=== PATIENT | male | born 1940 | race Caucasian/White ===

== ENCOUNTER 2020-06-30 08:07 | Outpatient (CLI) | payer MEDICARE, SELFPAY ==
--- NOTE | ~2020-06-30 | MR_ITS ---
EXAMINATION: MR brain/brain stem wo con DATE: 06/30/2020 10:01 INDICATION: Mild cognitive impairment. TECHNIQUE: Magnetic resonance imaging (MRI) of the brain and brainstem was performed without intraven ous contrast. Sequences included sagittal and axial T1-weighted FSE, axial diffusion-weighted FS EPI, axial T2*-weighted GRE, axial T2-weighted FLAIR Propeller, and axial T2-weighted Propeller. Apparent diffusion coefficient (ADC) maps were created. COMPARISON: Brain MRI 03/07/2013 FINDINGS: There are scattered areas of nonspecific increased T2-weighted signal intensity in the cere bral white matter and eddie, which is within normal limits for the patient's age. There is no intracra nial hemorrhage, acute infarction, or abnormal intracranial mass lesion. The ventricles are normal in size. There is mucosal thickening in the paranasal sinuses. There are likely changes of ocular lens replacement surgeries. The mastoid air cells are normal. IMPRESSION: 1. Normal aging brain. Reviewed, dictated and finalized at location A. IMPRESSION: 1. Normal aging brain.
== END 2020-06-30 08:08 | disposition home or self-care (01) ==
PROVIDERS: PCP Family Medicine
DX: G31.84 Mild cognitive impairment of uncertain or unknown etiology (principal)
CPT/HCPCS: 70551

== ENCOUNTER 2021-09-08 08:51 | Outpatient (CLI) | payer MEDICARE, SELFPAY ==
--- NOTE | 2021-09-08 | ECHO_ITS ---
Patient Info Name: Jasbir Haynes Age: 81 years : 1940 Gender: Male Ht: 69 in Wt: 160 lbs BSA: 1.88 m2 HR: 58 bpm BP: 169 / 99 mmHg Technical Quality: Good Exam Date: 09/08/2021 11:28 AM Exam Location: [facility] Patient Status: Outpatient Admit Date: 09/08/2021 Staff Ordering Physician: Karo Gomez MD Ornament[employer] Worker Apprentice: Matt Gaming RDCS, RT Attending Provider: Karo Gomez MD Referring Physician: Jason MATHEWS; Exam Type: CA echo doppler color flow Study Info Indications R06.00 - Dyspnea, unspecified Complete two-dimensional, color flow and Doppler transthoracic echocardiogram is performed. Strain analysis performed. Summary 1. Complete two-dimensional, color flow and Doppler transthoracic echocardiogram is performed. 2. Left ventricular chamber dimension is normal. 3. Left ventricular systolic function is normal, estimated at 60-65%. 4. There is moderately increased left ventricular wall thickness. 5. The left ventricular diastolic function is grade I diastolic dysfunction. 6. E/e' 6 is not elevated. 7. Global longitudinal strain is abnormal at -14.9%. 8. There is mild aortic valve sclerosis. 9. There is trace aortic valve regurgitation. 10. There is mild mitral valve regurgitation. 11. There is mild tricuspid valve regurgitation. 12. No pulmonary hypertension, estimated pulmonary arterial systolic pressure is 34 mmHg. 13. There is moderate pulmonic regurgitation. 14. The aortic root size at the sinus of Valsalva is borderline dilated at 4.0 cm. Left Ventricle E/e' 6 is not elevated. Global longitudinal strain is abnormal at -14.9%. Left ventricular chamber dimension is normal. Left ventricular systolic function is normal, estimated at 60-65%. There is moderately increased left ventricular wall thickness. The left ventricular diastolic function is grade I diastolic dysfunction. Right Ventricle Right ventricular systolic function is normal and with normal TAPSE 2.5 cm. Right ventricular chamber dimension is normal. Left Atria Left atrial chamber dimension is normal. Right Atria Right atrial chamber dimension is normal. Aortic Valve The aortic valve is trileaflet. There is mild aortic valve sclerosis. There is no aortic valve stenosis. There is trace aortic valve regurgitation. Pulmonic Valve There is moderate pulmonic regurgitation. Mitral Valve There is no mitral valve stenosis. There is mild mitral valve regurgitation. Tricuspid Valve There is mild tricuspid valve regurgitation. No pulmonary hypertension, estimated pulmonary arterial systolic pressure is 34 mmHg. Pericardium/Pleural There is no pericardial effusion. Inferior Vena Cava Normal inferior vena cava with >50% collapse upon inspiration consistent with normal right atrial pressure, 5 mmHg. Aorta The aortic root size at the sinus of Valsalva is borderline dilated at 4.0 cm. Left Ventricular Outflow Tract Name Value Normal LVOT 2D LVOT Diameter 2.0 cm LVOT Doppler LVOT Peak Gradient 3 mmHg LVOT Mean Gradient 2 mmHg
--- NOTE | ~2021-09-08 | MR_ITS ---
EXAMINATION: MR brain/brain stem wo con DATE: 09/08/2021 10:20 INDICATION: Syncope. TECHNIQUE: Magnetic resonance imaging (MRI) of the brain and brainstem was performed without intraven ous contrast. COMPARISON: Brain MRI 06/30/2020 FINDINGS: There are scattered areas of nonspecific increased T2-weighted signal intensity in the cere bral white matter and eddie, which is within normal limits for the patient's age. There is no intracra nial hemorrhage, acute infarction, or abnormal intracranial mass lesion. The ventricles are normal in size. There is mucosal thickening in the paranasal sinuses. The mastoid air cells are normal. There are likely changes of ocular lens replacement surgeries. IMPRESSION: 1. Normal aging brain. Reviewed, dictated and finalized at location A. IMPRESSION: 1. Normal aging brain.
--- NOTE | ~2021-09-08 | US_ITS ---
EXAMINATION: US carotid duplex BI DATE: 09/08/2021 10:03 INDICATION: Syncope TECHNIQUE: Grayscale, color Doppler, and pulsed Doppler images of the cervical carotid arteries were obtained. The degree of vessel stenosis is placed in one of the following categories: normal, <50%, 5 0-69%, >=70% but less than near-occlusion, near-occlusion, or total occlusion. Note that percent sten osis relative to normal distal artery lumen diameter is indirectly measured from velocity measurement s as described by Emigdio, et al. Radiology 2003; 229:340-346. Notes: Normal: Peak systolic velocity <125 centimeters/sec and no plaque <50%. Peak systolic velocity <125 ( EDV <40; ICA/CCA PSV ratio <2.0; used these factors only a tandem lesions or low cardiac output or co ntralateral disease) 50-69 %: PSV 125-230 (EDV 40-100; ratio 2-4) >= 70% but less than near occlusion: PSV greater than 230 (EDV > 100; ratio> 4.0) Near Occlusion: PSV that is variable; markedly narrowed lumen Occlusion: Absent flow on color/spectral Doppler and no lumen on reyes scale. COMPARISON: None. FINDINGS: RIGHT: The right common carotid artery (CCA) peak systolic velocity (PSV) is 81 cm/s. The right internal car otid artery (ICA) PSV is 103 cm/s. The right ICA end-diastolic velocity (EDV) is 35 cm/s. The right I CA/CCA PSV ratio is 1.3. The external carotid artery (ECA) PSV is 98 cm/s. There is antegrade flow in the right vertebral artery. LEFT: The left CCA PSV is 83 cm/s. The left ICA PSV is 97 cm/s. The left ICA EDV is 26 cm/s. The left ICA/C CA PSV ratio is 1.2. The ECA PSV is 94 cm/s. There is antegrade flow in the left vertebral artery. IMPRESSION: 1. Less than 50% stenosis in the right internal carotid artery by sonographic criteria. 2. Less than 50% stenosis in the left internal carotid artery by sonographic criteria. Reviewed, dictated and finalized at location A. IMPRESSION: 1. Less than 50% stenosis in the right internal carotid artery by sonographic nicolette bhakta. 2. Less than 50% stenosis in the left internal carotid artery by sonographic fortunato doyle.
--- NOTE | 2021-09-09 09:35 | P.NEURO_ITS ---
Neurology EEG Report General Information Date of Study: 09/08/21 TEST EEG DIAGNOSIS syncope CONDITION OF RECORDING awake drowsy and sleep EEG NUMBER [id number] CLINICAL HISTORY patient reported he has lost consciousness twice in the last couple weeks EEG DESCRIPTION basic resting occipital frequency consists of large amount of fairly well- organized low to medium voltage 8 to 9 hertz per 2nd alpha admixed with low- voltage 15 to 18 hertz per 2nd beta. Bilateral symmetrical sleep activity seen during sleep. Multiple movement artifacts seen throughout the tracing intermittently. Hyperventilation. . . On local. Not K[place]. IMPRESSION Normal record
== END 2021-09-08 08:52 | disposition home or self-care (01) ==
PROVIDERS: PCP Family Medicine; Visit Provider Family Medicine
DX: R53.1 Weakness (principal); M48.061 Spinal stenosis, lumbar region without neurogenic claudication; R55 Syncope and collapse; I10 Essential (primary) hypertension; H61.22 Impacted cerumen, left ear; R26.9 Unspecified abnormalities of gait and mobility; I65.23 Occlusion and stenosis of bilateral carotid arteries; I34.0 Nonrheumatic mitral (valve) insufficiency; I35.1 Nonrheumatic aortic (valve) insufficiency; I36.1 Nonrheumatic tricuspid (valve) insufficiency
CPT/HCPCS: 70551; 93306; 93880; 95816

== ENCOUNTER 2021-12-31 10:10 | Outpatient (CLI) | payer MEDICARE, SELFPAY ==
[2021-12-31 10:40] LABS: Hemoglobin 14.3 g/dL (14.0-18.0); Mean Corpuscular HGB Conc 31.8 g/dl (32-36); Mean Corpuscular Hemoglobin 29.9 pg (26-34); Mean Corpuscular Volume 93.9 fl (80-100); Mean Platelet Volume 9.4 fl (7.4-10.4); Platelet Count Result 228 k/mm3 (150-375); Red Blood Count 4.79 M/mm3 (4.6-6.20); Red Cell Distribution Width 14.4 % (11.5-14.5); White Blood Count 6.4 K/mm3 (4.5-10.0)
[2021-12-31 12:28] LABS: Rheumatoid Factor < 12.0 IU/ML (<12)
[2021-12-31 12:29] LABS: Alanine Aminotransferase 33 U/L (6-50); Albumin Level 4.6 g/dL (3.5-5.1); Alkaline Phosphatase 81 U/L (38-126); Anion Gap 11 mmol/L (8-16); Aspartate Amino Transferase 43 U/L (17-59); Bilirubin,Total 0.4 mg/dL (0.2-1.3); Blood Urea Nitrogen 29 mg/dL (9-20); CRP 0.7 mg/dL (<1.0); Calcium 10.1 mg/dL (8.4-10.2); Carbon Dioxide 29 mmol/L (22-30); Chloride 99 mmol/L (98-107); Creatine Kinase 111 U/L (55-170); Estimated Glomerular Filt Rate 45; Glucose 88 mg/dL (65-110); Potassium 4.5 mmol/L (3.4-5.0); Sodium 139 mmol/L (137-145)
[2021-12-31 12:45] LABS: Erythrocyte Sedimentation Rate 11 mm/hr (0-20)
[2022-01-03 12:30] LABS: Anti Cyclic Citrullinated Pept <16 Units (<20)
[2022-01-05 02:22] LABS: Aldolase 4.9 U/L (<=8.1)
[2022-01-05 21:15] LABS: Anti Nuclear Antibody Titer 1:40 (Negative)
== END 2021-12-31 10:11 | disposition home or self-care (01) ==
LOC: ANHLAB 10:13
PROVIDERS: PCP Family Medicine; Visit Provider Internal Medicine
DX: G70.00 Myasthenia gravis without (acute) exacerbation (principal); M15.9 Polyosteoarthritis, unspecified; M35.3 Polymyalgia rheumatica; Z71.89 Other specified counseling; Z79.899 Other long term (current) drug therapy
CPT/HCPCS: 36415; 73130; 80053; 82085; 82550; 85027; 85652; 86038; 86039; 86140; 86200; 86430

== ENCOUNTER 2021-12-31 10:58 | Outpatient (CLI) | payer MEDICARE, SELFPAY ==
--- NOTE | ~2021-12-31 | XR_ITS ---
EXAMINATION: XR hand BI arthritis min 3V DATE: 12/31/2021 11:28 INDICATION: Unspecified osteoarthritis, unspecified site. TECHNIQUE: 4 views of right hand and 4 views of left hand on a total of 8 radiographs were obtained. COMPARISON: None. 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 There is radial angulation of third and fourth distal phalanges with respect to the middle phalanges. No fracture. There is severe osteoarthritis of radio scaphoid joint, triscaphe joint, first carpometacarpal joint, first-third metacarpophalangeal joints, first interphalangeal joint, third and fourth proximal interphalangeal joints, and second-fifth dist al interphalangeal joints. There is mild osteoarthritis of the other metacarpophalangeal joints and i nterphalangeal joints. LEFT HAND: There is radial subluxation and angulation of the third and fourth distal phalanges with r espect to the middle phalanges. No fracture. There is severe osteoarthritis of triscaphe joint and fi rst carpometacarpal joint, moderate osteoarthritis of first and third metacarpophalangeal joints, and mild osteoarthritis of fifth metacarpophalangeal joint. There is osteoarthritis of all of the interp halangeal joints, severe at second-fourth proximal and distal interphalangeal joints. 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 Reviewed, dictated and finalized at location A.
== END 2021-12-31 10:59 | disposition home or self-care (01) ==
LOC: ANHIMG 11:03
PROVIDERS: PCP Family Medicine; Visit Provider Internal Medicine
DX: M35.3 Polymyalgia rheumatica (principal); G70.00 Myasthenia gravis without (acute) exacerbation; Z71.89 Other specified counseling; Z79.899 Other long term (current) drug therapy; M19.041 Primary osteoarthritis, right hand
CPT/HCPCS: 73130

== ENCOUNTER 2022-07-21 01:28 | Day surgery (SDC) | payer MEDICARE, SELFPAY ==
[2022-07-12 11:18] VITALS: BMI 23.3
--- NOTE | 2022-07-12 11:32 | PC.NURSE ---
Report to the Outpatient Waiting Room, entrance under the green pavilion located off [facility], at time ___0900____ on date __07/21/22 . Planned Procedure Time: __1000 . Time changes happen often and if your time is changed the preop area will call you the afternoon before. - You and your visitor will be asked to self-screen and do not enter if you have any COVID symptoms. - Only one visitor is requested with a max of two and NO children visitors are allowed at this time. - The patient visitor may be requested to leave or wait in car when not with patient due to distancing restrictions. - A mask is optional within the hospital at this time. -MAY HAVE LIGHT BREAKFAST Take the following medications with a SIP of water the morning of surgery: _REGULAR HOME MEDS__ DO NOT STOP ANY OF YOUR OTHER PRESCRIPTION MEDICATIONS PRIOR TO SURGERY ?EXCEPT THE FOLLOWING Medications to discontinue per physician Date to take last dose Please no make-up, nail turkmen, hairspray, perfume, deodorant, or body powder the day of surgery. No jewelry (including any body piercings) or valuables the day of surgery, leave them at home. Please take a shower or bath the night before, or the morning of, surgery with an antibacterial soap. Wear comfortable, loose fitting clothing. Children are encouraged to wear pajamas. - Jewelry must be removed prior to entering the operating room. Rings and piercings that are not removed may be cut off. - The hospital will not accept responsibility for valuables. - Please leave all valuables, including medications, at home the day of surgery. -MAY DRIVE YOURSELF TO/FROM HOSPITAL, BUT A SENIOR SQL DEVELOPER IS RECOMMENDED For Pediatric surgeries, we recommend two adults accompany the child home. Follow any additional instructions given to you from your surgeon. If you or anyone in your household have experienced Covid symptoms in the past week, please notify your surgeon or the nurse liaison at the phone number below for possible testing. Telephone instructions given to _PATIENT_and asked if any additional questions and then verbalized understanding. Patient advised to call surgeon office or pre surgery nurse liaison [phone] if any additional questions.
[2022-07-21] VITALS (13 sets, daily range): BP systolic 131–161; BP diastolic 71–91; PULSE 61–70; RESP 16–18; TEMP 36.4; O2SAT 95–100
--- NOTE | 2022-07-21 07:27 | WPDHPUPDATE1 ---
History and Physical Update Update Date/Time: 07/21/22 07:27 History and Physical has been reviewed, including an updated exam of the patient. There are NO changes in the patient's condition. Risks, benefits, and alternatives have been discussed and questions answered. Patient agrees to proceed with procedure.
[2022-07-21] MEDS: LIDO 1%/EPINEPHRINE 1:100,000 50 ML VIAL 18 ML INFILTRATE (09:11)
[2022-07-21] MEDS: BACITRACIN OINTMENT 15 GM TUBE 1 APPLIC TOPICAL (09:11)
--- NOTE | 2022-07-21 09:59 | SUR.OPER ---
gave frozen section given to Yuliya
--- NOTE | 2022-07-21 11:23 | W.PM.PROC2 ---
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 He was taken to the operating room where he was placed supine on the operating table. The face was prepped and draped in usual fashion. A time-out was held and confirmed. The site was carefully examined and locally infiltrated and anesthetized with an infraorbital nerve block using 1% lidocaine with epinephrine. Adequate anesthesia was obtained. A rectangular piece of vermilion was taken with a 15 blade through full-thickness of the skin tissue. This was sent to pathology for frozen section diagnosis and the report was squamous cell carcinoma. The wedge type excision was incised takeing additional 1 mm so on either side of the 1st specimen margin. This was then taken across the orbicular artery and superficial orbicular auris. Skin, mucosa, subcutaneous tissue and that margin of orbicularis were taken in this piece. An effort was made to try to preserve cutaneous nerves crossing to the midline. These were not visible, but the lower orbicularis was retained and the skin and mucosa membrane tissue were taken as full-thickness pieces but underlying subcutaneous tissue was retained as possible. The specimen was sent for permanent section. The wound was closed with a 4-0 Vicryl mattress suture in the superficial orbicularis. The mucocutaneous tissue was repaired with interrupted buried 4-0 chromic sutures. The skin was coapted with 4-0 intradermal Vicryl. The outer skin was closed with interrupted and running 6 0 nylon. The contour appeared to be excellent. The retained orbicularis did not appear to buckle or thicken the lower lip. Estimated Blood Loss 5 Drains No Packing No Pathology Yes Complications No immediate complications Condition Stable Disposition Same day
== END 2022-07-21 11:39 | disposition home or self-care (01) ==
PROVIDERS: PCP Family Medicine; Visit Provider Plastic Surgery
PROC: (CPT 11644; principal; 2022-07-21 09:00)
DX: C44.02 Squamous cell carcinoma of skin of lip (principal); G70.00 Myasthenia gravis without (acute) exacerbation; G47.30 Sleep apnea, unspecified; I48.20 Chronic atrial fibrillation, unspecified; N18.30 Chronic kidney disease, stage 3 unspecified; Z79.01 Long term (current) use of anticoagulants
CPT/HCPCS: 11644; 13152; 88305; 88331; A9270